=== PATIENT | male | born 1980 | race Caucasian/White ===

== ENCOUNTER 2016-10-18 06:27 | Emergency (ER) | payer OTHER ==
[2016-10-18 08:28] LABS: HEMOGLOBIN 17.5 gm/dl (14.0-17.5); RED BLOOD COUNT 5.7 M/UL (4.20-5.50); WHITE BLOOD COUNT 9.3 K/UL (4.5-11.0)
[2016-10-18 09:06] LABS: BUN/CREATININE RATIO 13 (0-10)
== END 2016-10-18 12:10 | disposition home or self-care (01) ==
LOC: ER1 06:27
PROVIDERS: Physician Assistant
DX: S16.1XXA Strain of muscle, fascia and tendon at neck level, initial encounter (principal); S39.012A Strain of muscle, fascia and tendon of lower back, initial encounter; S29.012A Strain of muscle and tendon of back wall of thorax, initial encounter; S00.81XA Abrasion of other part of head, initial encounter; M25.462 Effusion, left knee; R10.814 Left lower quadrant abdominal tenderness; Z23 Encounter for immunization; V43.52XA Car driver injured in collision with other type car in traffic accident, initial encounter; Y93.89 Activity, other specified; Y92.410 Unspecified street and highway as the place of occurrence of the external cause
CPT/HCPCS: 70450; 71010; 72125; 72128; 72131; 73090; 73564; 80053; 81001; 83690; 85025; 90471; 90715; 99284; J7050; Q9962

== ENCOUNTER → 2016-12-23 | Outpatient (CLI) | payer OTHER | LOC: US 12:51 | DX: M54.5 Low back pain (principal); R20.2 Paresthesia of skin; E04.1 Nontoxic single thyroid nodule; M51.86 Other intervertebral disc disorders, lumbar region; M48.07 Spinal stenosis, lumbosacral region; M25.78 Osteophyte, vertebrae | CPT/HCPCS: 72148; 76536 ==

== ENCOUNTER → 2017-01-03 | Outpatient (CLI) | payer OTHER | LOC: MRI 13:00 | DX: R51 Headache (principal); M54.2 Cervicalgia; R20.2 Paresthesia of skin; M50.21 Other cervical disc displacement, high cervical region; M99.41 Connective tissue stenosis of neural canal of cervical region; V89.2XXA Person injured in unspecified motor-vehicle accident, traffic, initial encounter | CPT/HCPCS: 72141 ==